=== PATIENT | female | born 1985 | race Two or more races ===

== ENCOUNTER 2022-04-28 05:04 | Emergency (ER) | payer MEDICAID ==
[~2022-04-28] VITALS: Ht 157.5 cm; Wt 95.5 kg
[2022-04-28 06:20] LABS: Basophils # (auto) 0 10 ^3/uL (0-0.2); Basophils % (auto) 0.6 % (0.0-2.0); Eosinophils # (auto) 0.3 10 ^3/uL (0-0.8); Eosinophils % (auto) 4.5 % (0.0-7.0); Lymphocytes # (auto) 2.1 10 ^3/uL (0.4-5.4); Lymphocytes % (auto) 37.4 % (10.0-50.0); Mean Corpuscular Hemoglobin 29.8 pg (28.0-32.0); Mean Corpuscular Hgb Conc. 34.1 g/dL (32.0-36.0); Mean Corpuscular Volume 87.4 fL (80.0-100.0); Monocytes # (auto) 0.3 10 ^3/uL (0-1.3); Monocytes % (auto) 5.6 % (0.0-12.0); Neutrophils % (auto) 51.9 % (37.0-80.0); Nucleated Red Blood Cells % 0.1 %; Red Blood Cells 4.69 10^6/uL (4.0-5.20); Red Cell Distribution Width 13.3 % (11.8-14.3); White Blood Cell 5.7 10^3/uL (4.4-10.8)
[2022-04-28 06:35] LABS: Albumin 3.7 g/dL (3.4-5.0); Potassium 3.6 mmol/L (3.5-5.1)
[2022-04-28 06:39] LABS: Bilirubin, Total 0.6 mg/dL (0.2-1.0); Total Protein 7.6 g/dL (6.4-8.2)
[2022-04-28 07:18] LABS: Urine Bacteria MANY /hpf (None Seen); Urine Blood Negative /uL (Negative); Urine Mucus FEW (None Seen); Urine Specific Gravity 1.018 (1.001-1.035); Urine WBC 8 /hpf (0 - 5)
[2022-04-28] MEDS ORDERED: CEPH-322 PO (10:22)
[2022-04-28 10:29] VITALS: BP 109/69
== END 2022-04-28 10:31 | disposition home or self-care (01) ==
LOC: ER 05:04
DX: N39.0 Urinary tract infection, site not specified (principal); K21.9 Gastro-esophageal reflux disease without esophagitis; Z87.442 Personal history of urinary calculi
CPT/HCPCS: 36415; 80053; 81001; 81025; 83690; 85025

== ENCOUNTER 2024-04-02 22:00 | Emergency (ER) | payer MEDICAID, OTHER ==
[~2024-04-02] VITALS: Ht 160 cm; Wt 90.8 kg
[~2024-04-02 22:00] MED LIST: CEPH250C PO
--- NOTE | 2024-04-02 23:43 | ED.PDOC ---
Back pain HPI HPI Comments 31-YEAR-OLD FEMALE PATIENT PRESENTS TO THE ED STATUS POST FALL. PATIENT STATES EARLIER TODAY SHE WAS WALKING TRIPPED LOST HER BALANCE TWISTED HER RIGHT ANKLE AND LANDED ON HER LEFT KNEE. HE IS COMPLAINING OF RIGHT ANKLE PAIN 8/10 ON PAIN SCALE SHARP AND SHOOTING TYPE PAIN WITH SWELLING. RIGHT KNEE PAIN WITH SOME SWELLING. [id number] TYLENOL OR MOTRIN WITH LITTLE RELIEF. DENIES NUMBNESS, WEAKNESS, NECK, BACK PAIN DENIES LOC OR HITTING HER HEAD. Chief Complaint: Lower Extremity Time Seen by MD: 22:13 Reviewed Notes: Nurses Notes, Medications, Allergies Allergies: Coded Allergies: NO KNOWN ALLERGIES (Unverified , 04/28/22) Home Meds Active Scripts Cephalexin (KEFLEX CAPSULE) 250 Mg Cp, 250 MG PO QID for 7 Days, #28 TAB Prov:JERMAINE TAY MD 04/28/22 Information Source: Patient Past Medical History PAST MEDICAL HISTORY: GERD, Kidney Stones, UTI'S Surgical History: Denies all surgeries PATTERN DUPLICATOR History: No Pertinent PATTERN DUPLICATOR History Family History Family History: Reviewed,noncontributory to illness Social History Smoker: Non-Smoker Alcohol: Denies ETOH Use Drugs: Denies Drug Use Lives In: Home Constitutional: denies: chills, diaphoresis, fatigue, fever, malaise, sweats, weakness, others EENTM: denies: blurred vision, double vision, ear bleeding, ear discharge, ear drainage, ear pain, ear ringing, eye pain, eye redness, hearing loss, mouth pain, mouth swelling, nasal discharge, nose bleeding, nose congestion, nose pain, photophobia, tearing, throat pain, throat swelling, voice changes, others Respiratory: denies: cough, hemoptysis, orthopnea, SOB at rest, shortness of breath, SOB with excertion, stridor, wheezing, others Cardiovascular: denies: chest pain, dizzy spells, diaphoresis, Dyspnea on exertion, edema, irregular heart beat, left arm pain, lightheadedness, palpitations, PND, syncope, others Gastrointestinal: denies: abdomen distended, abdominal pain, blood streaked bowels, constipated, diarrhea, dysphagia, difficulty swallowing, hematemesis, melena, nausea, poor appetite, poor fluid intake, rectal bleeding, rectal pain, vomiting, others Genitourinary: denies: abnormal vagina bleeding, burning, dyspareunia, dysuria, flank pain, frequency, hematuria, incontinence, pain, , vagina discharge, urgency, others Neurological: denies: dizziness, fainting, headache, left sided numbness, left sided weakness, numbness, paresthesia, pre-existing deficit, right sided numbness, right sided weakness, seizure, speech problems, tingling, tremors, weakness, others Musculoskeletal: reports: others (RIGHT ANKLE AND LEFT KNEE PAIN); denies: back pain, gout, joint pain, joint swelling, muscle pain, muscle stiffness, neck pain Integumetry: denies: bruises, change in color, change in hair/nails, dryness, laceration, lesions, lumps, rash, wounds, others Allergic/Immunocompromised: denies: Difficulty Healing, Frequent Infections, Hives, Itching, others Hematologic/Lymphatic: denies: anemia, blood clots, easy bleeding, easy bruising, swollen glands, others Endocrine: denies: excessive hunger, excessive sweating, excessive thirst, excessive urination, flushing, intolerance to cold, intolerance to heat, unexplained weight gain, unexplained weight loss, others Psychiatric: denies: anxiety, bipolar disorder, depression, hopeless, panic disorder, schizophrenia, sleepless, suicidal, others Physical Exam General Appearance: No Apparent Distress, Normal HEENT: Pharynx Normal Neck: Full Range of Motion, Non-Tender Respiratory: Lungs Clear, No Respiratory Distress, Normal Breath Sounds Cardiovascular: No Murmur, Normal Peripheral Pulses, Regular Rate/Rhythm Breast Exam: Deferred Gastrointestinal: Non Tender, Soft Genitalia: Deferred Pelvic: Deferred Rectal: Deferred Extremities: Normal capillary refill, Normal inspection, Normal range of motion, Non-tender, No pedal edema Musculoskeletal : Location: Right Extremity Location: Ankle (MILD TO MODERATE EDEMA RIGHT ANKLE MEDIAL ASPECT MALLEOLUS MODERATE TENDERNESS ON PALPATION. NO NOTED ECCHYMOSIS, ABRASIONS, OR LACERATIONS, OR OPEN WOUNDS. STRENGTH SENSORY MOTION INTACT POSITIVE PEDAL PULSE.), Other (RIGHT KNEE WITHOUT EDEMA, NEGATIVE BALLOTTEMENT, NEGATIVE DRAWER TEST, NEGATIVE ALEX'S TEST. ABRASIONS, LACERATIONS, OR ECCHYMOSIS. STRENGTH SENSORY MOTION INTACT TO RIGHT LOWER LEG POSITIVE PEDAL PULSE.) Apperance: Normal Neurologic: Alert, receiving lead II-XII nml as Tested, No Motor Deficits, Normal Affect, Normal Mood, No Sensory Deficits Cerebellar Function: Normal Reflexes: Normal Skin: Dry, Normal Color, Warm Lymphatic: No Adenopathy Was a procedure done? Was a procedure done?: No Back Pain Differential Dx Differential Diagnosis: Fracture, Musculoskeletal Pain X-Ray, Labs, Meds, VS Vital Signs Date Time Temp Pulse Resp B/P (MAP) Pulse Ox O2 Delivery O2 Flow Rate FiO2 04/03/24 00:03 98.2 109 20 117/66 (83) 97 98.2 04/02/24 22:40 98.3 119 18 108/68 (81) 93 04/02/24 22:40 98.3 119 18 108/68 (81) 93 98.3 04/02/24 22:40 Room Air Current Medications Medications (Trade) Dose Ordered Sig/Bj Route Start Time Stop Time Status Last Admin Ketorolac Tromethamine (Toradol Injection) 60 mg ONCE ONCE IM 04/03/24 00:15 04/03/24 00:16 DC 04/03/24 00:56 X-Ray, Labs, Meds, VS Comment RIGHT ANKLE X-RAY SHOWS NO ACUTE FINDINGS OR OSSEOUS LESIONS. LEFT KNEE X-RAY SHOWS NO ACUTE FINDINGS OR OSSEOUS LESIONS. PATIENT WAS GIVEN TORADOL 60 MG IM SHE NOTES IMPROVEMENT IN PAIN AND FUNCTION IS REQUESTING DISCHARGE AT THIS TIME RESULTS DISCUSSED WITH PATIENT IN DETAIL ALL QUESTIONS ANSWERED. PATIENT PLACED IN RIGHT ANKLE STIRRUP ALONG WITH CRUTCHES. ADVISED HER ON RICE. SCRIPT IBUPROFEN 800 MG T.I.D. P.R.N. PAIN SWELLING. ADVISED TO FOLLOW UP WITH HER PCP IN 2-3 DAYS NECESSARY CONSIDER FURTHER IMAGING SUCH MRI IF SYMPTOMS PERSIST. ADVISED TO TAKE MEDICATIONS PRESCRI BED SIDE EFFECTS DISCUSSED, ER RETURN PRECAUTIONS DISCUSSED PATIENT INDICATES UNDERSTANDING AND AGREES WITH DISCHARGE PLAN OF CARE. Time of 1ST Reevaluation: 01:28 Reevaluation 1ST: Improved Patient Education/Counseling: Diagnosis, Treatment, Prognosis, Need For Follow Up Family Education/Counseling: No Family Present Departure 1 Departure Time of Disposition: 01:30 Impression: Primary Impression: Sprain of right medial ankle joint Qualified Codes: S93.421A - Sprain of deltoid ligament of right ankle, initial encounter Additional Impression: Contusion of left knee, initial encounter Disposition: HOME / SELF CARE / HOMELESS Condition: Stable e-Prescriptions Ibuprofen (Ibuprofen) 800 Mg Tab 1 TAB PO TID PRN for 7 Days, #21 TAB Prov: LUCIA TUCKER 04/03/24 Discharged With: Self Critical Care Note Critical Care Time?: No Stability Stability form required: LUCIA Quach Apr 02, 2024 23:43
[2024-04-03 00:03] VITALS: BP 117/66; PULSE 109; RESP 20; TEMP 98.2; O2SAT 97
[2024-04-03] MEDS: KETOROLAC TROMETH 60MG/2ML VIAL IM ONE (00:56)
--- NOTE | 2024-04-03 01:02 | DVH ---
CLINICAL INDICATION: INJURY/PX TECHNIQUE: XY R ANKLE 3 VIEW Comparison: None FINDINGS: Soft tissue swelling overlying the lateral malleolus. No evidence of joint effusion, fracture or disl ocation. Ankle mortise appears normal. IMPRESSION: No evidence of fracture or dislocation.
--- NOTE | 2024-04-03 01:03 | DVH ---
CLINICAL INDICATION: INJURY/PX TECHNIQUE: XY L KNEE 3V XRAY Comparison: None FINDINGS: No osseous or joint abnormality with no evidence of joint effusion, fracture or dislocation. Joint sp aces are normal. IMPRESSION: No abnormality demonstrated.
[2024-04-03] MEDS ORDERED: IBUP-1456 PO (01:31)
== END 2024-04-03 01:40 | disposition home or self-care (01) ==
LOC: ER 22:00
DX: S93.421A Sprain of deltoid ligament of right ankle, initial encounter (principal); S80.02XA Contusion of left knee, initial encounter; K21.9 Gastro-esophageal reflux disease without esophagitis; Z79.899 Other long term (current) drug therapy; W01.0XXA Fall on same level from slipping, tripping and stumbling without subsequent striking against object, initial encounter; Y93.01 Activity, walking, marching and hiking; Y92.89 Other specified places as the place of occurrence of the external cause; Y99.8 Other external cause status
CPT/HCPCS: 29515; 73562; 73610; 96372; 99284; J1885